=== PATIENT | female | born 1995 | race Caucasian/White ===

== ENCOUNTER → 2017-08-16 | Outpatient (CLI) | payer BC | LOC: LAB 13:00 | PROVIDERS: ATTEND Family Medicine | DX: R59.0 Localized enlarged lymph nodes (principal) | CPT/HCPCS: 36415; 86308 ==

== ENCOUNTER 2018-03-25 16:43 | Emergency (ER) | payer BC, OTHER ==
[~2018-03-25] VITALS: Ht 154.9 cm; Wt 54.4 kg
[2018-03-25] MEDS ORDERED: KETOROLAC 30 MG/ML VIAL IVP ONE (17:00)
[2018-03-25] MEDS ORDERED: ONDANSETRON 4 MG/2 ML (SDV) Z0FRAN IVP ONE (17:00)
[2018-03-25 17:01] LABS: BASOPHILS % (AUTO) 0 % (0-10); EOSINOPHILS # (AUTO) 0.2 10^3/uL (0.0-0.3); EOSINOPHILS % (AUTO) 3 % (0-10); HEMATOCRIT 40 % (35-52); LYMPHOCYTES # (AUTO) 2.3 X 10^3 (1.0-4.0); LYMPHOCYTES % (AUTO) 31 % (12-44); MEAN CORPUSCULAR HEMOGLOBIN 31 PG (25-34); MEAN CORPUSCULAR HGB CONC 35 G/DL (32-36); MEAN CORPUSCULAR VOLUME 89 FL (80-99); MEAN PLATELET VOLUME 10.4 FL (7.4-10.4); MONOCYTES # (AUTO) 0.7 X 10^3 (0.0-1.0); MONOCYTES % (AUTO) 10 % (0-12); NEUTROPHILS # (AUTO) 4.2 X 10^3 (1.8-7.8); NEUTROPHILS % (AUTO) 57 % (42-75); PLATELET COUNT 323 10^3/uL (130-400); RED CELL DISTRIBUTION WIDTH 12.5 % (10.0-14.5); WHITE BLOOD COUNT 7.4 10^3/uL (4.3-11.0)
--- NOTE | 2018-03-25 17:04 | ED Abdominal Pain ---
General Chief Complaint: Abdominal/GI Problems Stated Complaint: R ABD PAIN Source of Information: Patient Exam Limitations: No Limitations History of Present Illness Date Seen by Provider: Mar 25, 2018 Time Seen by Provider: 16:59 Initial Comments ordered to ER with a friend with reports of right lower quadrant abdominal pain present for 48 hours. She's had some nausea. The pain is worsened with movement. She jumped off of some playground equipment earlier today and this worsened her pain. No vomiting, no fevers/chills, no diarrhea, no dysuria, no vaginal discharge. No history of this type of pain and no history of ovarian cysts. She is on oral contraceptives. Timing/Duration: 1-2 Days Severity/Quality: Moderate Location: RLQ Activities at Onset: None Associated Symptoms: Denies Symptoms Allergies and Home Medications Allergies Coded Allergies: No Known Drug Allergies (Unverified , 03/25/18) Home Medications Hydrocodone/Acetaminophen 1 Each Tablet, 1 EACH PO Q4H PRN for PAIN-MODERATE TO SEVERE Prescribed by: LAKEISHA ALEJANDRO on 03/25/18 1800 Patient Home Medication List Home Medication List Reviewed: Yes Review of Systems Constitutional: see HPI EENTM: No Symptoms Reported Respiratory: No Symptoms Reported Cardiovascular: No Symptoms Reported Gastrointestinal: See HPI, Abdominal Pain Genitourinary: No Symptoms Reported Musculoskeletal: no symptoms reported Skin: no symptoms reported Psychiatric/Neurological: No Symptoms Reported Endocrine: No Symptoms Reported Past Trdasbm-Wsfxnu-Xjzjpu Hx Patient Social History Recent Foreign Travel: No Contact w/Someone Who Travel: No Physical Exam Vital Signs Vital Signs - First Documented 03/25/18 16:56 Temp 98.7 Pulse 93 Resp 18 B/P (MAP) 142/102 (115) Pulse Ox 100 Capillary Refill : Height/Weight/BMI Height: '" Weight: lbs. oz. kg; BMI Method: General Appearance: WD/WN, no apparent distress HEENT: PERRL/EOMI, normal ENT inspection Neck: non-tender, full range of motion Respiratory: no respiratory distress, no accessory muscle use Cardiovascular: regular rate, rhythm, no murmur Peripheral Pulses: 0 Carotid (R), 0 Carotid (L), 0 Femoral (R), 0 Femoral (L), 0 Dorsalis Pedis (R), 0 Left Dors-Pedis (L), 0 Radial Pulses (R), 0 Radial Pulses (L) Gastrointestinal: normal bowel sounds, soft, tenderness (tenderm=ness) Extremities: normal range of motion, non-tender Neurologic/Psychiatric: alert, normal mood/affect, oriented x 3 Skin: normal color, warm/dry Progress/Results/Core Measures Results/Orders Lab Results Laboratory Tests Test 03/25/18 16:50 03/25/18 17:11 Range/Units White Blood Count 7.4 4.3-11.0 10^3/uL Red Blood Count 4.50 4.35-5.85 10^6/uL Hemoglobin 14.0 11.5-16.0 G/DL Hematocrit 40 35-52 % Mean Corpuscular Volume 89 80-99 FL Mean Corpuscular Hemoglobin 31 25-34 PG Mean Corpuscular Hemoglobin Concent 35 32-36 G/DL Red Cell Distribution Width 12.5 10.0-14.5 % Platelet Count 323 130-400 10^3/uL Mean Platelet Volume 10.4 7.4-10.4 FL Neutrophils (%) (Auto) 57 42-75 % Lymphocytes (%) (Auto) 31 12-44 % Monocytes (%) (Auto) 10 0-12 % Eosinophils (%) (Auto) 3 0-10 % Basophils (%) (Auto) 0 0-10 % Neutrophils # (Auto) 4.2 1.8-7.8 X 10^3 Lymphocytes # (Auto) 2.3 1.0-4.0 X 10^3 Monocytes # (Auto) 0.7 0.0-1.0 X 10^3 Eosinophils # (Auto) 0.2 0.0-0.3 10^3/uL Basophils # (Auto) 0.0 0.0-0.1 10^3/uL Sodium Level 139 135-145 MMOL/L Potassium Level 3.6 3.6-5.0 MMOL/L Chloride Level 107 98-107 MMOL/L Carbon Dioxide Level 24 21-32 MMOL/L Anion Gap 8 5-14 MMOL/L Blood Urea Nitrogen 11 7-18 MG/DL Creatinine 0.74 0.60-1.30 MG/DL Estimat Glomerular Filtration Rate > 60 BUN/Creatinine Ratio 15 Glucose Level 99 70-105 MG/DL Calcium Level 9.5 8.5-10.1 MG/DL Total Bilirubin 0.3 0.1-1.0 MG/DL Aspartate Amino Transf (AST/SGOT) 17 5-34 U/L Alanine Aminotransferase (ALT/SGPT) 11 0-55 U/L Alkaline Phosphatase 51 40-136 U/L Total Protein 7.1 6.4-8.2 GM/DL Albumin 4.2 3.2-4.5 GM/DL Urine Color YELLOW Urine Clarity CLEAR Urine pH 6 5-9 Urine Specific Ho[place] 1.020 1.016-1.022 Urine Protein NEGATIVE NEGATIVE Urine Glucose (UA) NEGATIVE NEGATIVE Urine Ketones NEGATIVE NEGATIVE Urine Nitrite NEGATIVE NEGATIVE Urine Bilirubin NEGATIVE NEGATIVE Urine Urobilinogen NORMAL NORMAL MG/DL Urine Leukocyte Esterase 1+ H NEGATIVE Urine RBC (Auto) 1+ H NEGATIVE Urine RBC 2-5 H /HPF Urine WBC 2-5 /HPF Urine Squamous Epithelial Cells 10-25 H /HPF Urine Crystals NONE /LPF Urine Bacteria MODERATE H /HPF Urine Casts NONE /LPF Urine Mucus NEGATIVE /LPF Urine Culture Indicated NO Urine Test NEGATIVE NEGATIVE My Orders Orders - LAKEISHA ALEJANDRO BANQUET STEWARD Cbc With Automated Diff (03/25/18 16:45) Comprehensive Metabolic Panel (03/25/18 16:45) Ua Culture If Indicated (03/25/18 16:45) Urine Bedside (03/25/18 16:45) Iv Heplock-Insert (Order) (03/25/18 16:45) Ketorolac Injection (Toradol Injection) (03/25/18 17:00) Ondansetron Injection (Zofran Injectio (03/25/18 17:00) Ct Abd/Pelv W (Appendicitis) (03/25/18 17:14) Iohexol Injection (Omnipaque 350 Mg/Ml 1 (03/25/18 17:30) Ns (Ivpb) (Sodium Chloride 0.9%) (03/25/18 17:30) Sodium Chloride Flush (Catheter Flush Sy (03/25/18 17:30) Pharmacy Communication (Pharmacy Communi (03/25/18 17:18) Hcg,Qualitative Urine (03/25/18 17:18) Medications Given in ED Current Medications Medications Dose Ordered Sig/Belem Route Start Time Stop Time Status Last Admin Dose Admin Iohexol 75 ml ONCE ONCE IV 03/25/18 17:30 03/25/18 17:31 DC 03/25/18 17:37 75 ML Ketorolac Tromethamine 15 mg ONCE ONCE IVP 03/25/18 17:00 03/25/18 17:01 DC 03/25/18 17:09 15 MG Ondansetron HCl 4 mg ONCE ONCE IVP 03/25/18 17:00 03/25/18 17:01 DC 03/25/18 17:08 4 MG Sodium Chloride 10 ml NEEDED PRN IV 03/25/18 17:30 03/25/18 17:38 10 ML Sodium Chloride 250 ml ONCE ONCE IV 03/25/18 17:30 03/25/18 17:31 DC 03/25/18 17:38 80 ML Vital Signs/I&O 03/25/18 16:56 Temp 98.7 Pulse 93 Resp 18 B/P (MAP) 142/102 (115) Pulse Ox 100 Diagnostic Imaging Diagonstic Imaging: CT Comments NAME: [facility] REC#: [id number] PT STATUS: REG ER : 1995 PHYSICIAN: LAKEISHA ALEJANDRO BANQUET STEWARD ADMIT DATE: 03/25/18/ER Draft Date of Exam:03/25/18 CT ABD/PELV W (APPENDICITIS) PROCEDURE: CT abdomen and pelvis with contrast, rule out appendicitis. TECHNIQUE: Multiple contiguous axial images were obtained through the abdomen and pelvis after the administration of intravenous contrast. INDICATION: Right lower quadrant pain with nausea. FINDINGS: The heart size is normal. The lung bases are clear. The liver is normal in size and without focal lesions. The gallbladder is unremarkable. There is no biliary ductal dilatation. Spleen is normal. The pancreas and adrenal glands are unremarkable. Kidneys are normal in appearance. The aorta is nonaneurysmal. Bowel gas pattern is nonspecific. There is no ascites. There is no free air. There are no focal inflammatory changes. There is no definitive CT evidence for appendicitis. Bladder is decompressed. There is no pelvic mass or adenopathy. The osseous structures are unremarkable. IMPRESSION: No acute abnormality in the abdomen or pelvis. Specifically, there is no definitive CT evidence of appendicitis. Dictated on workstation # [id number] Dict: 03/25/18 1744 Trans: 03/25/18 1748 [id number] Interpreted by: HOMAR BAZAN MD Electronically signed by: Departure Impression Primary Impression: RLQ abdominal pain Disposition: 01 HOME, SELF-CARE Condition: Stable Departure-Patient Inst. Decision time for Depature: 17:04 Referrals: NO,LOCAL PHYSICIAN (PCP/Family) Primary Care Physician Patient Instructions: Acute Abdomen (Belly Pain), Adult (DC) Add. Discharge Instructions: 1. Return to the emergency room for any worsening pain, fevers or new symptoms. If you're having persistent pain by Thursday you should follow-up with your primary care provider or [facility]. All discharge instructions reviewed with patient and/or family. Voiced understanding. Scripts Hydrocodone/Acetaminophen ([place] 5-325 Tablet) 1 Each Tablet 1 EACH PO Q4H PRN for PAIN-MODERATE TO SEVERE, #5 TAB Prov: LAKEISHA ALEJANDRO APRN 03/25/18 LAKEISHA ALEJANDRO APRN Mar 25, 2018 17:04
[2018-03-25 17:19] LABS: BILIRUBIN,URINE NEGATIVE (NEGATIVE); CLARITY,URINE CLEAR; COLOR,URINE YELLOW; GLUCOSE, URINE (UA) NEGATIVE (NEGATIVE); KETONES,URINE NEGATIVE (NEGATIVE); LEUKOCYTE ESTERASE ,URINE 1+ (NEGATIVE); NITRITE,URINE NEGATIVE (NEGATIVE); PH,URINE 6 (5-9); PROTEIN,URINE NEGATIVE (NEGATIVE); UROBILINOGEN,URINE NORMAL (NORMAL)
[2018-03-25 17:21] LABS: ALANINE AMINOTRANSFERASE 11 U/L (0-55); ALBUMIN 4.2 GM/DL (3.2-4.5); ALKALINE PHOSPHATASE 51 U/L (40-136); BILIRUBIN,TOTAL 0.3 MG/DL (0.1-1.0); BUN/CREATININE RATIO 15; CALCIUM 9.5 MG/DL (8.5-10.1); CARBON DIOXIDE 24 MMOL/L (21-32); CHLORIDE 107 MMOL/L (98-107); CREATININE SERUM 0.74 MG/DL (0.60-1.30); GFR ESTIMATED > 60; GLUCOSE 99 MG/DL (70-105); POTASSIUM 3.6 MMOL/L (3.6-5.0); SODIUM 139 MMOL/L (135-145); TOTAL PROTEIN 7.1 GM/DL (6.4-8.2)
[2018-03-25 17:26] LABS: BACTERIA,URINE MODERATE /HPF
[2018-03-25] MEDS ORDERED: IOHEXOL 350 MG/ML 100 ML (OMNIPAQUE 350) VIAL IV ONE (17:30)
[2018-03-25] MEDS ORDERED: NS 250 ML (IVPB) BAG IV ONE (17:30)
[2018-03-25] MEDS: CATHETER FLUSH 10 ML SYR IV PRN (17:38)
--- NOTE | 2018-03-25 17:48 | Diagnostic Imaging Report ---
PROCEDURE: CT abdomen and pelvis with contrast, rule out appendicitis. TECHNIQUE: Multiple contiguous axial images were obtained through the abdomen and pelvis after the administration of intravenous contrast. INDICATION: Right lower quadrant pain with nausea. FINDINGS: The heart size is normal. The lung bases are clear. The liver is normal in size and without focal lesions. The gallbladder is unremarkable. There is no biliary ductal dilatation. Spleen is normal. The pancreas and adrenal glands are unremarkable. Kidneys are normal in appearance. The aorta is nonaneurysmal. Bowel gas pattern is nonspecific. There is no ascites. There is no free air. There are no focal inflammatory changes. There is no definitive CT evidence for appendicitis. Bladder is decompressed. There is no pelvic mass or adenopathy. The osseous structures are unremarkable. IMPRESSION: No acute abnormality in the abdomen or pelvis. Specifically, there is no definitive CT evidence of appendicitis. Dictated by: Dictated on workstation # [id number]
[2018-03-25] MEDS ORDERED: HYDR-757 PO (18:00)
[2018-03-25 18:08] VITALS: BP 126/71
--- OUTSIDE RECORDS SUMMARY | 2018-03-25 22:19 | XMS REPORT | Referral Summary ---
Author Author [facility] Organization [facility] Address Unknown Phone Unavailable Care Team Providers Care Test Engineering Intern Name Role Phone Shawn Mcfadden PCP Encounter [facility] Date(s): 09/21/15 - 09/21/15 [facility] [address] [place], [place] [address] Discharge Disposition: 01-Home or Self Care Attending Physician: Delores Mcghee DO Admitting Physician: Delores Mcghee DO Referring Physician: Delores Mcghee DO Vital Signs No data available for this section Problem List Condition Effective Dates Status Health Status Informant Sore Active throat(Confirmed) Recurrent Active tonsillitis(Confirme d) Allergies, Adverse Reactions, Alerts No Known Allergies Medications clindamycin 300 mg oral capsule 300 mg 1 caps, Oral, q8hr, 0 Refill(s) Start Date: 08/20/15 Status: Ordered Flonase 50 mcg/inh nasal spray 2 sprays, Nasal, BID, # 16 g, 3 Refill(s) Start Date: 09/05/15 Status: Ordered Results No data available for this section Immunizations Vaccine Date Refusal Reason diphtheria/pertussis, acel/tetanus ped 01/27/02 diphtheria/pertussis, acel/tetanus ped 07/03/98 diphtheria/pertussis, whole cell/tetanus 97 diphtheria/pertussis, whole cell/tetanus 97 diphtheria/pertussis, whole cell/tetanus 97 haemophilus b conjugate (HbOC) vaccine 03/16/98 haemophilus b conjugate (HbOC) vaccine 97 haemophilus b conjugate (HbOC) vaccine 97 haemophilus b conjugate (HbOC) vaccine 97 hepatitis B pediatric vaccine 97 hepatitis B pediatric vaccine 97 measles/mumps/rubella virus vaccine 01/27/02 measles/mumps/rubella virus vaccine 03/16/98 poliovirus vaccine, inactivated 01/27/02 poliovirus vaccine, inactivated 97 poliovirus vaccine, inactivated 97 poliovirus vaccine, inactivated 97 varicella virus vaccine 07/03/98 Procedures Procedure Date Related Diagnosis Body Site Tonsillectomy, primary or secondary; age 14 09/05/15 or over.. Right Knee Tendon Repair 2010 Knee joint Social History Social History Type Response Smoking Status Never smoker Assessment and Plan No data available for this section
--- OUTSIDE RECORDS SUMMARY | 2018-03-25 22:19 | XMS REPORT ---
Author Author WENDI Mustafa Organization [facility] Address [address] [place] [address] Care Team Providers Care Freight Hustler Name Role Phone WENDI Mustafa Unavailable PROBLEMS Unknown Problems ALLERGIES No Known Allergies ENCOUNTERS Encounter Location Date Diagnosis [facility] [address] [facility] [id number] [address] Mar, Acute contact dermatitis L25.9 IMMUNIZATIONS No Known Immunizations SOCIAL HISTORY Never Assessed REASON FOR VISIT Rash on her arms and legs...thinks they might be bug bites. has had them for 2- 3 days. [email or web address] PLAN OF CARE Activity Details Follow Up prn Reason: VITAL SIGNS Height 61 in 2017-03-30 Weight 115.0 lbs 2017-03-30 Temperature 97.5 degrees Fahrenheit 2017-03-30 Heart Rate 74 bpm 2017-03-30 Respiratory Rate 18 2017-03-30 BMI 21.73 kg/m2 2017-03-30 Blood pressure systolic 98 mmHg 2017-03-30 Blood pressure diastolic 58 mmHg 2017-03-30 MEDICATIONS Medication Instructions Dosage Frequency Start Date End Date Duration Status Lexapro 10 MG Orally Once a day 1 tablet 24h Active Kol-Wi-Hkzmodyb 0.18/0.215/0.25 MG-25 MCG Orally Once a day 1 tablet 24h Active RESULTS No Results PROCEDURES No Known procedures INSTRUCTIONS MEDICATIONS ADMINISTERED No Known Medications
--- OUTSIDE RECORDS SUMMARY | 2018-03-25 22:19 | XMS REPORT | Referral Summary ---
Author Author [facility] Organization [facility] Address Unknown Phone Unavailable Care Team Providers Care Direct Care Provider Name Role Phone Shawn Mcfadden PCP Encounter [facility] [id number] Date(s): 08/20/15 - 08/20/15 [facility] [address] [place], [place] [address] Discharge Disposition: 01-Home or Self Care Attending Physician: Delores Mcghee DO Admitting Physician: Delores Mcghee DO Vital Signs Most recent to 1 oldest [Reference Range]: Blood Pressure 96/66 mmHg [90-140/60-90 mmHg] (08/20/15 3:15 PM) Problem List Condition Effective Dates Status Health Status Informant Sore Active throat(Confirmed) Allergies, Adverse Reactions, Alerts No Known Allergies Medications clindamycin 300 mg oral capsule 300 mg 1 caps, Oral, q8hr, 0 Refill(s) Start Date: 08/20/15 Status: Ordered Results No data available for [...] Procedures Procedure Date Related Diagnosis Body Site Right Knee Tendon Repair 2011 Knee joint Social History Social History Type Response Smoking Status Never smoker Assessment and Plan No data available for this section
--- OUTSIDE RECORDS SUMMARY | 2018-03-25 22:19 | XMS REPORT | Referral Summary ---
Author Author [facility] Organization [facility] Address Unknown Phone Unavailable Care Team Providers Care Mailmaster Name Role Phone Shawn Mcfadden PCP Encounter [facility] [id number] Date(s): 09/05/15 - 09/05/15 [facility] [address] [place], [place] [address] Discharge Diagnosis: Recurrent tonsillitis Discharge Disposition: 01-Home or Self Care Attending Physician: Delores Mcghee DO Admitting Physician: Delores Mcghee DO Vital Signs Most recent to 1 oldest [Reference Range]: Temperature Temporal 36.6 degC Artery [36.3-37.8 (09/05/15 7:36 AM) degC] Peripheral Pulse 77 bpm Rate [60-100 bpm] (09/05/15 7:36 AM) Respiratory Rate 16 br/min [14-20 br/min] (09/05/15 7:36 AM) Blood Pressure 127/72 mmHg [90-140/60-90 mmHg] (09/05/15 7:36 AM) SpO2 98 % (09/05/15 7:36 AM) Problem List Condition Effective Dates Status Health Status Informant Sore Active throat(Confirmed) Recurrent Active tonsillitis(Confirme d) Allergies, Adverse Reactions, Alerts No Known Allergies Medications clindamycin 300 mg oral capsule 300 mg 1 caps, Oral, q8hr, 0 Refill(s) Start Date: 08/20/15 Status: Ordered Flonase 50 mcg/inh nasal spray 2 sprays, Nasal, BID, # 16 g, 3 Refill(s) Start Date: 09/05/15 Status: Ordered HYDROcodone-acetaminophen 7.5 mg-325 mg/15 mL oral solution 15 mL, Oral, q4hr, as needed for pain, # 300 mL, 0 Refill(s) Start Date: 09/05/15 Stop Date: 09/18/15 Status: Ordered Results Chemistry Most recent to 1 oldest [Reference Range]: U Beta hCG Ql Neg (09/05/15 7:44 AM) Immunizations Vaccine Date Refusal Reason diphtheria/pertussis, acel/tetanus [...] Smoking Status Never smoker Assessment and Plan Extracted from: Title: Ambulatory Patient Education Author: Lakshmi Clark RN Date: [facility] Operative Instructions Ambulate _X_ Unrestricted __ On Crutches as tolerated __ Weight Bearing Exercise __ None _X_ Light __ Unrestricted __ Do not strain or lift more than _ lbs. for _ weeks. Other: Diet __ Liquids (Jell-O, soups, etc., if you are nauseated) _X_ Begin with liquids and light foods then progress to soft diet. __ Regular diet __ No alcoholic beverages for 24 hours or while taking pain medication. Personal hygiene __ Bath __ Shower after __ hours __ Sponge Bath __ Sitz Baths At Home care At Home care __ Remove dressing in ___hours __ Keep dressing clean and dry. __ Elevate affected area above level of your heart. __ Do not change dressing until you see your doctor. __ Apply ice to area for ___ hours __ Avoid blowing nose. __ Wear sling as directed. _X Keep water out of ears __ Remove drain in ___ hours __ Change dressing as necessary. Other: If any problems occur or if you have any further questions, please contact your physician. In an emergency, call [phone] ([phone]), if you cannot reach your physician. If you find that you cannot contact your physician, but feel that your signs and symptoms warrant a physician s attention, go to an Emergency room which is the closest to you. Activities: X Take Tylenol as needed for discomfort _X_ Prescription given for discomfort. Use as directed. __ Prescription given for antibiotic. Follow instructionson label. Continue taking until medication is gone. __ Resume routine medications. __ Ear drainage more than Days __ Stool softener Next dose of pain medicine may be given at (Take with food to prevent stomach upset.) Other: Call your surgeon promptly if you have: _X_ Fever over 101 __ Ear drainage more than _5 Days _X_ Pain not relieved by pain medication _X_ Bleeding or unexpected drainage from incision __ Extreme redness or swelling around incision. __ Inability to urinate by: _x_ Persistent nausea and vomiting. _X_ Cough develops or difficulty breathing Do NOT drive or operate hazardous machinery for 24 hours or while taking pain medication. Do not sign any important documents or make important decisions for 24 hours following surgery. When taking pain medicine, be careful as you walk or climb stairs as dizziness is not unusual. Check temperature every four hours during the day for two days. No follow up information was provided.
--- OUTSIDE RECORDS SUMMARY | 2018-03-25 22:19 | XMS REPORT | Referral Summary ---
Author Author [facility] Organization [facility] Address Unknown Phone Unavailable Care Team Providers Care Cytogenetics Laboratory Manager Name Role Phone Shawn Mcfadden PCP Encounter [facility] Date(s): 02/12/15 - 02/12/15 [facility] [address] [place], [place] [address] Discharge Diagnosis: Blepharitis Discharge Diagnosis: Cellulitis Discharge Disposition: 01-Home or Self Care Attending Physician: Carmen Titus Admitting Physician: Carmen Titus Vital Signs Most recent to 1 oldest [Reference Range]: Temperature Oral 36.8 degC [36.0-37.6 degC] (02/12/15 1:52 PM) Apical Heart Rate 80 bpm [55-90 bpm] (02/12/15 1:52 PM) Blood Pressure 98/60 mmHg [90-138/45-84 mmHg] (02/12/15 1:52 PM) SpO2 98 % (02/12/15 1:52 PM) Problem List Condition Effective Dates Status [...] smoker Assessment and Plan Extracted from: Title: Office Visit Note Author: Carmen Titus Date: 02/12/15 Assessment/Plan 1.Blepharitis 2.Cellulitis Patient is put on cefadroxil 500 mg BID for 10 days. She is to use heat to the area as well. If there is worsening or no improvement of symptoms ,she is to follow up as needed. Orders: cefadroxil, 500 mg 1 caps, Oral, q12hr, X 10 days, # 20 caps, 0 Refill (s), Pharmacy: [facility]/pharmacy #[id number], 1 caps Oral q12hr,x10 days I reviewed this chart, the patient's medical history, and the Resident's/GRAIN OILSEED OR PASTURE FARM MANAGER's /PA/RN's/PharmD's documented findings, and concur with the assessment and plan as above.
--- OUTSIDE RECORDS SUMMARY | 2018-03-25 22:19 | XMS REPORT | Referral Summary ---
Author Author [facility] Organization [facility] Address Unknown Phone Unavailable Care Team Providers Care Executive Director Of Marketing Name Role Phone Shawn Mcfadden PCP Encounter [facility] Date(s): 07/31/15 - 07/31/15 [facility] [address] [place] [address] Discharge Disposition: 01-Home or Self Care Attending Physician: Kisha Celaya Admitting Physician: Kisha Celaya Vital Signs Most recent to 1 oldest [Reference Range]: Temperature Oral 36.6 degC [35.8-37.3 degC] (07/31/15 3:19 PM) Peripheral Pulse 100 bpm Rate [60-100 bpm] (07/31/15 3:19 PM) Blood Pressure 104/60 mmHg [90-140/60-90 mmHg] (07/31/15 3:19 PM) SpO2 90 % (07/31/15 3:19 PM) Problem List No Known Problems Allergies, Adverse Reactions, Alerts No Known Allergies Medications No Known Medications Results No data available for this section [...] Diagnosis Body Site Right Knee Tendon Repair 2010 Social History Social History Type Response Smoking Status Never smoker Assessment and Plan Extracted from: Title: Office Visit Note Author: Kisha Celaya Date: 07/31/15 Assessment/Plan Pharyngitis 1. Discussed symptomatic care. Encouraging Tylenol or ibuprofen as needed, fluids, Mucinex products, and rest. 2. Discussed that would be notified by phone if throat culture is positive. 3. Discussed keeping track of how many times she has to go to services and is treated for sore throat or strep throat, discussing that if this is ongoing problem and there is documentation we may refer to ENT. 4. Notify office if change in symptoms. 5. Follow-up as needed.
== END 2018-03-25 18:13 | disposition home or self-care (01) ==
LOC: EDUNIT# 16:43 → ER 16:44
DX: R10.31 Right lower quadrant pain (principal)
CPT/HCPCS: 36415; 74177; 80053; 81000; 84703; 85025; 96374; 96375